=== PATIENT | female | born 1995 | race Caucasian/White ===

== ENCOUNTER 2017-05-17 15:38 | Inpatient (IN) | payer OTHER ==
[2017-05-17] VITALS (7 sets, daily range): BP systolic 102–126; BP diastolic 57–80; PULSE 79–100; RESP 12–23; TEMP 97.8–98.4; O2SAT 97–99
[~2017-05-17] VITALS: Ht 160 cm; Wt 61.0 kg
[2017-05-17] MEDS ORDERED: LACTATED RINGER'S 1000 ML INJ 1,000 ML IV SCH (15:57)
[2017-05-17] MEDS ORDERED: ONDANSETRON HCL 4 MG/2 ML VIAL IV PUSH ONE (16:00)
[2017-05-17] MEDS ORDERED: MORPHINE SULFATE 4 MG/ML INJ IV PUSH ONE (16:00)
[2017-05-17] MEDS: SODIUM CHLORIDE 0.9% FLUSH 10 ML FLUSH IVF PRN (16:06)
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
[2017-05-17 16:38] LABS: AUTOMATED NEUTROPHIL # 3.8 TH/MM3 (1.8-7.7); BASOPHIL % 0.5 % (0.0-2.0); EOSINOPHIL % 0.8 % (0.0-4.0); HEMATOCRIT 39.8 % (35.0-46.0); HEMOGLOBIN 13.7 GM/DL (11.6-15.3); LYMPHOCYTE # 1.8 TH/MM3 (1.0-4.8); MEAN CELL VOLUME 87.4 FL (80.0-100.0); MEAN CORPUSCULAR HEMOGLOBIN 30.2 PG (27.0-34.0); MEAN CORPUSCULAR HGB CONC 34.5 % (32.0-36.0); MEAN PLATELET VOLUME 7.9 FL (7.0-11.0); MONO % 7.3 % (0.0-8.0); MONOCYTE # 0.4 TH/MM3 (0-0.9); NEUT % 61.4 % (16.0-70.0); PLATELET COUNT 347 TH/MM3 (150-450); RED BLOOD COUNT 4.56 MIL/MM3 (4.00-5.30); RED CELL DISTRIBUTION WIDTH 12.1 % (11.6-17.2); WHITE BLOOD COUNT 6.1 TH/MM3 (4.0-11.0)
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
[2017-05-17 16:51] LABS: BICARBONATE 26.3 MEQ/L (21.0-32.0); CALCIUM 8.9 MG/DL (8.5-10.1); CREATININE 0.76 MG/DL (0.50-1.00); PROTHROMBIN TIME - PATIENT 10.1 SEC (9.8-11.6)
[2017-05-17] MEDS ORDERED: IOHEXOL 350 MG/ML 10 ML VIAL (for RAD DIAG) IVCONTRAST ONE (16:51)
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
[2017-05-17] MEDS ORDERED: NALOXONE HCL 0.4 MG/ML AMP IV PUSH PRN (18:00)
[2017-05-17] MEDS ORDERED: ACETAMINOPHEN/HYDROcodone 325 MG/5 MG TAB PO PRN (18:00)
[2017-05-17] MEDS ORDERED: ACETAMINOPHEN/HYDROcodone 325 MG/10 MG TAB PO PRN (18:00)
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
[2017-05-17] MEDS ORDERED: HYDROmorphone HCL PF 2 MG/ML VIAL IV PUSH PRN (18:15)
[2017-05-17] MEDS ORDERED: MORPHINE SULFATE 4 MG/ML INJ IV PUSH PRN (18:15)
[2017-05-17] MEDS: D5-NS + KCL 20 MEQ INJ 1,000 ML IV SCH (18:30)
[2017-05-17] MEDS: HYDROmorphone HCL PF 2 MG/ML VIAL IV PUSH PRN ×3 (18:31→23:20)
[2017-05-17] MEDS: ONDANSETRON HCL 4 MG/2 ML VIAL IV PUSH PRN (20:35)
[2017-05-17] MEDS: DOCUSATE SODIUM 100 MG CAP PO SCH (21:00)
[2017-05-18] VITALS (9 sets, daily range): BP systolic 102–109; BP diastolic 59–62; PULSE 67–98; RESP 17–28; TEMP 98.3–98.6; O2SAT 100
[2017-05-18] MEDS: ONDANSETRON HCL 4 MG/2 ML VIAL IV PUSH PRN ×2 (01:55→08:28)
[2017-05-18] MEDS: HYDROmorphone HCL PF 2 MG/ML VIAL IV PUSH PRN ×5 (02:32→22:43)
[2017-05-18] MEDS: D5-NS + KCL 20 MEQ INJ 1,000 ML IV SCH ×2 (04:00→14:47)
[2017-05-18 05:39] LABS: AUTOMATED NEUTROPHIL # 8.2 TH/MM3 (1.8-7.7); BASOPHIL % 0.1 % (0.0-2.0); HEMATOCRIT 35.8 % (35.0-46.0); HEMOGLOBIN 12.3 GM/DL (11.6-15.3); LYMPH % 15.3 % (9.0-44.0); LYMPHOCYTE # 1.6 TH/MM3 (1.0-4.8); MEAN CELL VOLUME 87.6 FL (80.0-100.0); MEAN CORPUSCULAR HEMOGLOBIN 30.1 PG (27.0-34.0); MEAN CORPUSCULAR HGB CONC 34.3 % (32.0-36.0); MEAN PLATELET VOLUME 8.1 FL (7.0-11.0); MONO % 6.7 % (0.0-8.0); MONOCYTE # 0.7 TH/MM3 (0-0.9); NEUT % 77.9 % (16.0-70.0); PLATELET COUNT 300 TH/MM3 (150-450); RED BLOOD COUNT 4.09 MIL/MM3 (4.00-5.30); RED CELL DISTRIBUTION WIDTH 12.2 % (11.6-17.2); WHITE BLOOD COUNT 10.5 TH/MM3 (4.0-11.0)
[2017-05-18 05:45] LABS: INTERNATIONAL NORMALIZED RATIO 1.1 RATIO
[2017-05-18 05:56] LABS: BICARBONATE 25.1 MEQ/L (21.0-32.0); CALCIUM 8.2 MG/DL (8.5-10.1); CREATININE 0.74 MG/DL (0.50-1.00)
--- NOTE | 2017-05-18 08:28 | ECHRPT ---
Indication: EF assessment of CHF CONCLUSIONS Normal left ventricular size. Wall thickness is normal. The left ventricular systolic function is hyperdynamic with an estimated ejection fraction in the ra nge of 65- 70%. No atrial level shunt is demonstrated by color flow Doppler interrogation. There is trace tricuspid valve regurgitation. The estimated pulmonary arterial pressure is 30.1 mmHg. BP: 102 / 59 HR: 72 Rhythm: Sinus MEASUREMENTS (Male / Female) Normal Values Technical Quality:Fair 2D ECHO LV Diastolic Diameter PLAX 4.6 cm 4.2 - 5.9 / 3.9 - 5.3 cm LV Systolic Diameter PLAX 2.9 cm IVS Diastolic Thickness 0.6 cm 0.6 - 1.0 / 0.6 - 0.9 cm LVPW Diastolic Thickness 0.6 cm 0.6 - 1.0 / 0.6 - 0.9 cm LV Relative Wall Thickness 0.3 RV Internal Dim ED PLAX 2.1 cm LVOT Diameter 1.8 cm Aortic Root Diameter 2.5 cm LA Systolic Diameter LX 2.8 cm 3.0 - 4.0 / 2.7 - 3.8 cm M-MODE AV Cusp Separation MM 1.9 cm DOPPLER Mitral E Point Velocity 80.0 cm/s Mitral A Point Velocity 40.0 cm/s Mitral E to A Ratio 2.0 LV E' Lateral Velocity 16.6 cm/s Mitral E to LV E' Lateral Ratio 4.8 LV E' Septal Velocity 12.4 cm/s Mitral E to LV E' Septal Ratio 6.5 TR Peak Velocity 224.0 cm/s TR Peak Gradient 20.1 mmHg Right Atrial Pressure 10.0 mmHg Pulmonary Artery Systolic Pressu 30.1 mmHg Right Ventricular Systolic Press 30.1 mmHg FINDINGS LEFT VENTRICLE Normal left ventricular size. Wall thickness is normal. The left ventricular systolic function is hyperdynamic with an estimated ejection fraction in the ra nge of 65- 70%. RIGHT VENTRICLE Normal right ventricular size and systolic function. LEFT ATRIUM The left atrial size is normal. RIGHT ATRIUM The right atrial size is normal. ATRIAL SEPTUM No atrial level shunt is demonstrated by color flow Doppler interrogation. AORTA The aortic root and proximal ascending aorta are normal in size on limited imaging. MITRAL VALVE Structurally normal mitral valve. No mitral valve stenosis or regurgitation. AORTIC VALVE Trileaflet aortic valve. No aortic valve stenosis or regurgitation. TRICUSPID VALVE There is trace tricuspid valve regurgitation. The estimated pulmonary arterial pressure is 30.1 mmHg. PULMONARY VALVE No pulmonary valve regurgitation or stenosis. VESSELS The inferior vena cava is normal in size. PERICARDIUM No pericardial effusion. Rodo Wray MD, FACC (Electronically Signed) Final Date:18 May 2017 08:27
[2017-05-18] MEDS: SODIUM CHLORIDE 0.9% FLUSH 10 ML FLUSH IVF PRN (08:29)
--- NOTE | 2017-05-18 08:44 | EKG ---
Date Performed: 05/18/2017 Time Performed: 05:35:26 PTAGE: 21 years EKG: Sinus rhythm . Inferior and anterolateral ST elevation, CONSIDER ACUTE INFARCT, PERICARDITIS, OR EARLY REPOLARIZAT ION ABNORMALITY Abnormal ECG NO PREVIOUS TRACING DOCTOR: Peter Nielson Interpretating Date/Time 05/18/2017 08:24:27
[2017-05-18] MEDS: DOCUSATE SODIUM 100 MG CAP PO SCH ×2 (09:00→21:00)
[2017-05-18] MEDS ORDERED: PANTOPRAZOLE SOD 40 MG DELAYED RELEASE TAB PO SCH (09:00)
[2017-05-18] MEDS ORDERED: HYDROmorphone HCL PCA 6 MG/30 ML IV SCH (09:15)
[2017-05-18] MEDS: PCA - TOTAL MG DILAUDID DELIVERED PER SHIFT SCH ×3 (09:15→22:00)
[2017-05-18] MEDS ORDERED: NALOXONE HCL 0.4 MG/ML AMP IV PUSH PRN ×2 (09:15→17:45)
[2017-05-18] MEDS ORDERED: methylPREDNISolone SOD SUCC 40 MG/1 ML VIAL IV PUSH ONE (09:30)
[2017-05-18] MEDS ORDERED: PANTOPRAZOLE SODIUM 40 MG VIAL IV PUSH SCH (10:00)
[2017-05-18] MEDS ORDERED: RESP: ALBUTEROL 2.5 MG/IPRATROPIUM 0.5 MG NEB (PRN) NEB (10:15)
[2017-05-18 10:20] LABS: TROPONIN I LESS THAN 0.02 NG/ML (0.02-0.05)
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
[2017-05-18] MEDS: ALPRAZolam 0.25 MG TAB PO PRN (10:52)
[2017-05-18] MEDS: CYCLOBENZAPRINE HCL 10 MG TAB PO PRN (10:52)
[2017-05-18] MEDS ORDERED: HYDROmorphone HCL PF 2 MG/ML VIAL IV ONE (11:17)
[2017-05-18] MEDS ORDERED: HYDROmorphone HCL PF 2 MG/ML VIAL IV PUSH PRN ×2 (12:00→17:45)
[2017-05-18] MEDS ORDERED: GLYCOPYRROLATE 1 MG/5 ML SYRINGE IV PUSH ONE (12:00)
[2017-05-18] MEDS ORDERED: ROCURONIUM INJ 50 MG/5 ML SYRINGE IV PUSH ONE (12:00)
[2017-05-18] MEDS ORDERED: LIDOCAINE HCL 1% PF 5 ML SYRINGE OTHER ONE (12:00)
[2017-05-18] MEDS ORDERED: SODIUM CHLORID 0.9% 500 ML INJ 500 ML IV ONE (12:00)
[2017-05-18] MEDS ORDERED: LACTATED RINGER'S 1000 ML INJ 2,000 ML IV ONE (12:00)
[2017-05-18] MEDS ORDERED: PHENYLEPH/NS 1000 MCG/10 ML SYR IV ONE (12:00)
[2017-05-18] MEDS ORDERED: ONDANSETRON HCL 4 MG/2 ML VIAL IV ONE (12:00)
[2017-05-18] MEDS ORDERED: DEXAMETHASONE SOD PHOS 4 MG/ML VIAL IV ONE (12:00)
--- NOTE | 2017-05-18 13:31 | RADRPT ---
EXAM DATE/TIME: 05/18/2017 12:48 [facility] COMPARISON: CT THORACIC SPINE W CONTRAST, May 17, 2017, 16:30. INDICATIONS : MCA. MEDICAL HISTORY : None. SURGICAL HISTORY : None. ENCOUNTER: Subsequent ACUITY: 2 day PAIN SCORE: 6/10 LOCATION: back TECHNIQUE: Multiplanar multisequence MRI of the thoracic spine was performed. FINDINGS: VERTEBRA: There is a moderate wedge compression fracture involving the superior plate of T11. There is abnormal bone marrow edema in the body of T11. The rest of the thoracic vertebral bodies are grossly intact. There is some kyphosis centered at T11. ALIGNMENT: Mild anterior subluxation of T10 over T11. CORD: Normal position and configuration. T1-T2: Normal. T2-T3: The thecal sac has a normal diameter. No evidence of disc bulge or protrusion. T3-T4: The thecal sac has a normal diameter. No evidence of disc bulge or protrusion. T4-T5: The thecal sac has a normal diameter. No evidence of disc bulge or protrusion. T5-T6: The thecal sac has a normal diameter. No evidence of disc bulge or protrusion. T6-T7: The thecal sac has a normal diameter. No evidence of disc bulge or protrusion. T7-T8: The thecal sac has a normal diameter. No evidence of disc bulge or protrusion. T8-T9: The thecal sac has a normal diameter. No evidence of disc bulge or protrusion. T9-T10: The thecal sac has a normal diameter. No evidence of disc bulge or protrusion. T10-T11: There is some retropulsion of the posterior body of T11 secondary to the compression fracture injury creating some mild to moderate spinal canal stenosis. No significant cord compression is demonstrated . T11-T12: Mild broad-based bulging. The neural foramina appear patent. T12-L1: The thecal sac has a normal diameter. No evidence of disc bulge or protrusion. CONCLUSION: 1. Moderate acute wedge compression fracture injury involving the superior endplate of T11 causing ky phosis of the thoracic spine centered at this level. 2. Mild retropulsion of bony material posteriorly at the top of T11 causing some mild to moderate spi nal canal stenosis without significant cord compression. Geo Lin MD on May 18, 2017 at 13:20 Board Certified Radiologist. This report was verified electronically.
[2017-05-18] MEDS: RESP: ALBUTEROL 2.5 MG/IPRATROPIUM 0.5 MG NEB (SCH) NEB ×2 (14:20→20:00)
--- NOTE | 2017-05-18 14:41 | EKG ---
Date Performed: 05/18/2017 Time Performed: 11:22:18 PTAGE: 21 years EKG: Sinus rhythm . Normal ECG NO PREVIOUS TRACING DOCTOR: Peter Nielson Interpretating Date/Time 05/18/2017 14:38:52
[2017-05-18] MEDS ORDERED: VANCOMYCIN HCL 1000 MG VIAL ONE ×2 (15:04→17:36)
[2017-05-18] MEDS ORDERED: HEPARIN SODIUM - SQ 10,000 UNITS/ML VIAL ONE (15:04)
[2017-05-18] MEDS ORDERED: THROMBIN (TOPICAL) 5,000 UNIT VIAL ONE (15:04)
[2017-05-18] MEDS ORDERED: GELFOAM SIZE 100 ONE (15:05)
[2017-05-18] MEDS ORDERED: GELATIN POWDER 1 GM PACKET ONE (15:05)
[2017-05-18] MEDS ORDERED: BUPIVACAINE/EPINEPHRINE 0.5% PF 30 ML VIAL ONE (15:05)
[2017-05-18] MEDS ORDERED: GENTAMICIN SULFATE 80 MG/2 ML VIAL ONE (15:05)
--- NOTE | 2017-05-18 16:36 | HHI.NSPN ---
Note Status Status: Progress Note Interval History Interval History MRI Thoracic spine was done. Unstable fracture at T10-T11. Labs, Micro, & Vital Signs Results Date Time Temp Pulse Resp B/P (MAP) Pulse Ox O2 Delivery O2 Flow Rate FiO2 05/18/17 10:53 30 05/18/17 10:50 30 05/18/17 08:40 100 Nasal Cannula 2.00 05/18/17 06:00 74 05/18/17 04:00 72 05/18/17 04:00 98.3 72 17 102/59 (73) 100 05/18/17 02:00 72 05/18/17 00:00 98.6 67 18 103/61 (75) 100 05/18/17 00:00 70 05/17/17 22:00 85 05/17/17 20:00 98 05/17/17 20:00 98.4 98 23 108/57 (74) 99 05/17/17 19:05 98.4 100 12 108/63 (78) 99 05/17/17 18:35 97.8 81 16 102/67 (79) 99 05/17/17 17:47 97.8 89 16 126/80 (95) 99 Room Air Constitutional Vital Signs Date Time Temp Pulse Resp B/P (MAP) Pulse Ox O2 Delivery O2 Flow Rate FiO2 05/18/17 10:53 30 05/18/17 10:50 30 05/18/17 08:40 100 Nasal Cannula 2.00 05/18/17 06:00 74 05/18/17 04:00 72 05/18/17 04:00 98.3 72 17 102/59 (73) 100 05/18/17 02:00 72 05/18/17 00:00 98.6 67 18 103/61 (75) 100 05/18/17 00:00 70 05/17/17 22:00 85 05/17/17 20:00 98 05/17/17 20:00 98.4 98 23 108/57 (74) 99 05/17/17 19:05 98.4 100 12 108/63 (78) 99 05/17/17 18:35 97.8 81 16 102/67 (79) 99 05/17/17 17:47 97.8 89 16 126/80 (95) 99 Room Air Attending Statement I agree with Dr Pineda in the need for a surgical decompression and arthrodhesis with open reduction and internal fixation. I reviewed with her and discussed the details including the [id number] details of the surgical procedure, its indications, alternatives, risks, and potential complications. Risks and potential complications include, but are not limited to, infection, blood loss, CSF leak, partial or complete loss of sight in one or both eyes, paresis, paralysis, permanent pain or difficulty swallowing, loss of bowel or bladder function, complications from anesthesia, blood clot, stroke, myocardial infarction, or even . Geo Cunha MD May 18, 2017 16:36
[2017-05-18] MEDS ORDERED: ARTIFICIAL TEARS OPTH OINT 3.5 APPLIC/3.5 GM TUBO ONE (16:58)
[2017-05-18] MEDS ORDERED: PROPOFOL 500 MG/50 ML INJ 150 ML ONE (16:58)
[2017-05-18] MEDS ORDERED: SUFentanil INJ 250 MCG/5 ML AMP ONE (16:59)
[2017-05-18] MEDS ORDERED: SODIUM CHLOR 0.9% 250 ML INJ 250 ML ONE (17:37)
[2017-05-18] MEDS ORDERED: diphenhydrAMINE HCL 50 MG/ML VIAL IV PUSH PRN (17:45)
[2017-05-18] MEDS ORDERED: ACETAMINOPHEN 325 MG TAB PO PRN (17:45)
[2017-05-18] MEDS ORDERED: HYDROmorphone HCL PF 1 MG/ML VIAL IV PUSH PRN (17:45)
[2017-05-18] MEDS ORDERED: ceFAZolin INJ 1,000 MG VIAL IV ONE (18:05)
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
[2017-05-18] MEDS ORDERED: DO NOT ADM ANY ANTICOAGULANT DRUGS PRN (21:00)
[2017-05-18] MEDS ORDERED: *MEPERIDINE 25 MG INJ VIAL PERIprocedural Use ONLY ONE (21:24)
[2017-05-18] MEDS ORDERED: *morphine SULFATE 4 MG/ML PERIprocedure ONLY ONE (21:53)
[2017-05-18] MEDS: NS + KCL 20 MEQ INJ 1,000 ML IV SCH (22:10)
[2017-05-18] MEDS: HYDROmorphone HCL PCA 6 MG/30 ML IV SCH (22:15)
--- NOTE | 2017-05-18 22:48 | RADRPT ---
EXAM DATE/TIME: 05/18/2017 18:11 [facility] COMPARISON: No previous studies available for comparison. INDICATIONS : Thoracic fusion, T9-12. MEDICAL HISTORY : None. SURGICAL HISTORY : None. ENCOUNTER: Subsequent ACUITY: 1 day PAIN SCORE: Non-responsive. LOCATION: Thoracic. FINDINGS: There is transpedicular screw héctor fixation across a [id number] compression fracture. Drain pres ent. No complications identified. CONCLUSION: 1. Spine fixation, reportedly at T9-T12. Pro Brown MD on May 18, 2017 at 22:44 Board Certified Radiologist. This report was verified electronically.
[2017-05-19] VITALS (10 sets, daily range): BP systolic 105–128; BP diastolic 58–69; PULSE 72–115; RESP 10–24; TEMP 96.5–98.5; O2SAT 96–100
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
[2017-05-19] MEDS: HYDROmorphone HCL PF 2 MG/ML VIAL IV PUSH PRN (00:32)
[2017-05-19] MEDS: ALPRAZolam 0.25 MG TAB PO PRN ×2 (01:51→20:58)
[2017-05-19] MEDS: CYCLOBENZAPRINE HCL 10 MG TAB PO PRN ×3 (01:51→19:53)
[2017-05-19] MEDS: CEFAZOLIN INJ 2,000 MG in SODIUM CHLORIDE 0.9% INJ 80 ML IV SCH ×3 (01:51→18:46)
[2017-05-19] MEDS: ONDANSETRON HCL 4 MG/2 ML VIAL IV PUSH PRN (02:04)
[2017-05-19 03:20] LABS: AUTOMATED NEUTROPHIL # 12.1 TH/MM3 (1.8-7.7); BASOPHIL % 0.1 % (0.0-2.0); HEMOGLOBIN 11.5 GM/DL (11.6-15.3); LYMPH % 4.5 % (9.0-44.0); LYMPHOCYTE # 0.6 TH/MM3 (1.0-4.8); MEAN CELL VOLUME 88.7 FL (80.0-100.0); MEAN CORPUSCULAR HGB CONC 33.9 % (32.0-36.0); MONO % 5.6 % (0.0-8.0); MONOCYTE # 0.7 TH/MM3 (0-0.9); NEUT % 89.8 % (16.0-70.0); PLATELET COUNT 256 TH/MM3 (150-450); RED BLOOD COUNT 3.84 MIL/MM3 (4.00-5.30); WHITE BLOOD COUNT 13.5 TH/MM3 (4.0-11.0)
[2017-05-19 03:36] LABS: CALCIUM 7.8 MG/DL (8.5-10.1); CREATININE 0.84 MG/DL (0.50-1.00)
[2017-05-19] MEDS: HYDROmorphone HCL PCA 6 MG/30 ML IV SCH ×2 (03:39→23:12)
[2017-05-19] MEDS: PCA - TOTAL MG DILAUDID DELIVERED PER SHIFT SCH ×2 (06:00→22:00)
[2017-05-19] MEDS: NS + KCL 20 MEQ INJ 1,000 ML IV SCH (06:49)
[2017-05-19] MEDS: RESP: ALBUTEROL 2.5 MG/IPRATROPIUM 0.5 MG NEB (SCH) NEB ×3 (08:25→21:01)
[2017-05-19] MEDS: MAGNESIUM HYDROXIDE SUSP 30 ML CUP PO SCH ×2 (08:37→19:53)
[2017-05-19] MEDS: DOCUSATE SODIUM 100 MG CAP PO SCH (08:37)
[2017-05-19] MEDS: DOCUSATE SODIUM 50 MG/SENNA 8.6 MG TAB PO SCH ×2 (08:37→19:53)
[2017-05-19] MEDS: PANTOPRAZOLE SODIUM 40 MG VIAL IVP SCH (08:37)
[2017-05-19] MEDS ORDERED: ACETAMINOPHEN/HYDROcodone 325 MG/10 MG TAB PO PRN (09:30)
[2017-05-19] MEDS ORDERED: MORPHINE SULFATE 2 MG/ML INJ IV PUSH PRN (10:00)
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
[2017-05-19] MEDS: ACETAMINOPHEN/HYDROcodone 325 MG/10 MG TAB PO PRN ×3 (11:27→19:53)
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
[2017-05-19] MEDS ORDERED: diphenhydrAMINE HCL 50 MG/ML VIAL IV PUSH PRN (21:45)
[2017-05-19] MEDS ORDERED: NALOXONE HCL 0.4 MG/ML AMP IV PUSH PRN (21:45)
[2017-05-19] MEDS ORDERED: diphenhydrAMINE HCL 25 MG CAP PO PRN (21:45)
[2017-05-19] MEDS: SODIUM CHLORIDE 0.9% FLUSH 10 ML FLUSH IVF PRN (23:04)
[2017-05-20] VITALS (9 sets, daily range): BP systolic 98–117; BP diastolic 51–71; PULSE 102–119; RESP 15–22; TEMP 97.3–101.5; O2SAT 91–100
[2017-05-20 04:32] LABS: AUTOMATED NEUTROPHIL # 6.4 TH/MM3 (1.8-7.7); BASOPHIL % 0.3 % (0.0-2.0); EOSINOPHIL % 0.1 % (0.0-4.0); HEMATOCRIT 35.8 % (35.0-46.0); HEMOGLOBIN 12.3 GM/DL (11.6-15.3); LYMPHOCYTE # 1.7 TH/MM3 (1.0-4.8); MEAN CELL VOLUME 89.2 FL (80.0-100.0); MEAN CORPUSCULAR HEMOGLOBIN 30.6 PG (27.0-34.0); MEAN CORPUSCULAR HGB CONC 34.3 % (32.0-36.0); MEAN PLATELET VOLUME 7.9 FL (7.0-11.0); MONO % 9.9 % (0.0-8.0); MONOCYTE # 0.9 TH/MM3 (0-0.9); NEUT % 70.7 % (16.0-70.0); PLATELET COUNT 252 TH/MM3 (150-450); RED BLOOD COUNT 4.01 MIL/MM3 (4.00-5.30); RED CELL DISTRIBUTION WIDTH 12.3 % (11.6-17.2)
[2017-05-20 04:50] LABS: LACTIC ACID SEPSIS PROTOCOL 2.4 mmol/L (0.4-2.0)
[2017-05-20 05:00] LABS: ALBUMIN 3.2 GM/DL (3.4-5.0); ALKALINE PHOSPHATASE 47 U/L (45-117); ALT (GPT) 47 U/L (10-53); AST (GOT) 120 U/L (15-37); BICARBONATE 30.5 MEQ/L (21.0-32.0); BLOOD UREA NITROGEN 4 MG/DL (7-18); CALCIUM 8.2 MG/DL (8.5-10.1); CHLORIDE 100 MEQ/L (98-107); CREATININE 0.67 MG/DL (0.50-1.00); GLOMERULAR FILTRATION RATE 110 ML/MIN (>89); GLUCOSE,RANDOM 93 MG/DL (74-106); SODIUM (NA) 138 MEQ/L (136-145); TOTAL BILIRUBIN ADULT 0.5 MG/DL (0.2-1.0); TOTAL PROTEIN 6.9 GM/DL (6.4-8.2)
[2017-05-20] MEDS: PCA - TOTAL MG DILAUDID DELIVERED PER SHIFT SCH ×3 (06:00→21:23)
[2017-05-20] MEDS: HYDROmorphone HCL PCA 6 MG/30 ML IV SCH (06:26)
[2017-05-20] MEDS: ONDANSETRON HCL 4 MG/2 ML VIAL IV PUSH PRN (06:34)
[2017-05-20] MEDS ORDERED: POTASSIUM CHLORIDE 20 MEQ CONTROLLED RELEASE TAB PO ONE (08:00)
[2017-05-20] MEDS: RESP: ALBUTEROL 2.5 MG/IPRATROPIUM 0.5 MG NEB (SCH) NEB ×3 (08:18→19:22)
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
[2017-05-20] MEDS: PANTOPRAZOLE SODIUM 40 MG VIAL IVP SCH (08:57)
[2017-05-20] MEDS: MAGNESIUM HYDROXIDE SUSP 30 ML CUP PO SCH ×2 (08:57→21:17)
[2017-05-20] MEDS: DOCUSATE SODIUM 50 MG/SENNA 8.6 MG TAB PO SCH ×2 (08:57→21:17)
[2017-05-20] MEDS: ALPRAZolam 0.25 MG TAB PO PRN ×2 (09:02→18:08)
[2017-05-20] MEDS: CYCLOBENZAPRINE HCL 10 MG TAB PO PRN ×2 (09:03→18:08)
[2017-05-20] MEDS ORDERED: HYDROmorphone HCL PCA 6 MG/30 ML IV SCH (14:45)
[2017-05-20] MEDS: METOCLOPRAMIDE HCL 10 MG/2 ML VIAL IV PUSH SCH ×2 (15:29→21:22)
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
[2017-05-20] MEDS: ACETAMINOPHEN/HYDROcodone 325 MG/10 MG TAB PO PRN ×2 (17:24→21:18)
[2017-05-20] MEDS: ENOXAPARIN SODIUM 30 MG/0.3 ML SYRINGE SQ SCH (17:26)
[2017-05-21] VITALS (7 sets, daily range): BP systolic 98–113; BP diastolic 57–70; PULSE 100–107; RESP 14–20; TEMP 95–99.6; O2SAT 91–98
[2017-05-21] MEDS: ACETAMINOPHEN/HYDROcodone 325 MG/10 MG TAB PO PRN ×4 (05:39→20:01)
[2017-05-21] MEDS: PCA - TOTAL MG DILAUDID DELIVERED PER SHIFT SCH (05:45)
[2017-05-21] MEDS: METOCLOPRAMIDE HCL 10 MG/2 ML VIAL IV PUSH SCH ×3 (06:00→20:17)
[2017-05-21] MEDS: RESP: ALBUTEROL 2.5 MG/IPRATROPIUM 0.5 MG NEB (SCH) NEB ×3 (09:14→19:54)
[2017-05-21] MEDS: LACTULOSE SYRUP 20 GM/30 ML CUP PO SCH (09:18)
[2017-05-21] MEDS: DOCUSATE SODIUM 50 MG/SENNA 8.6 MG TAB PO SCH ×2 (09:18→20:01)
[2017-05-21] MEDS: ENOXAPARIN SODIUM 30 MG/0.3 ML SYRINGE SQ SCH ×2 (09:19→20:03)
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
[2017-05-21] MEDS: ALPRAZolam 0.25 MG TAB PO PRN ×2 (11:34→20:01)
[2017-05-21] MEDS: CYCLOBENZAPRINE HCL 10 MG TAB PO PRN ×2 (11:35→20:01)
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
--- NOTE | 2017-05-21 19:14 | HHI.NSPN ---
History Interval History Patient reports she is doing well. She reports her pain is well controlled. She is able to move her extremities well. She is beginning to ambulate with minimal assistance. She reports her brace is too big Exam Results Vital Signs Date Time Temp Pulse Resp B/P (MAP) Pulse Ox O2 Delivery O2 Flow Rate FiO2 05/21/17 16:00 97.6 105 14 113/65 (81) 95 05/21/17 09:14 21 05/19/17 08:25 Nasal Cannula 2.00 Intake and Output 05/21/17 05/21/17 05/22/17 08:00 16:00 00:00 Intake Total 220 ml 2200 ml Output Total 320 ml 800 ml Balance -100 ml 1400 ml Physical Examination Patient is alert and awake. Follows commands well. Moves lower extremities well. Sensation is intact Medical Decision Making Impression and Plan Overall doing well Plan is to increase mobilization. Request has also been placed to modify her brace Eric Rios MD May 21, 2017 19:14
[2017-05-21] MEDS ORDERED: HYDROmorphone HCL PF 2 MG/ML VIAL IV PUSH ONE (22:45)
[2017-05-22] VITALS: BP 116/58; PULSE 113; RESP 16; TEMP 98; O2SAT 92
[2017-05-22] MEDS: ACETAMINOPHEN/HYDROcodone 325 MG/10 MG TAB PO PRN ×4 (00:16→14:09)
[2017-05-22] MEDS: CYCLOBENZAPRINE HCL 10 MG TAB PO PRN ×2 (04:06→12:29)
[2017-05-22] MEDS: ALPRAZolam 0.25 MG TAB PO PRN ×2 (04:06→12:29)
[2017-05-22] MEDS: METOCLOPRAMIDE HCL 10 MG/2 ML VIAL IV PUSH SCH ×2 (04:10→12:29)
[2017-05-22 08:00] VITALS: BP 88/50; PULSE 97; RESP 18; TEMP 97.2; O2SAT 94
[2017-05-22] MEDS: RESP: ALBUTEROL 2.5 MG/IPRATROPIUM 0.5 MG NEB (SCH) NEB (08:17)
[2017-05-22] MEDS ORDERED: SODIUM CHLORID 0.9% 500 ML INJ 500 ML IV ONE (08:30)
[2017-05-22] MEDS: ENOXAPARIN SODIUM 30 MG/0.3 ML SYRINGE SQ SCH (08:45)
[2017-05-22] MEDS: DOCUSATE SODIUM 50 MG/SENNA 8.6 MG TAB PO SCH (08:45)
[2017-05-22] MEDS: LACTULOSE SYRUP 20 GM/30 ML CUP PO SCH (08:45)
[2017-05-22 10:00] VITALS: BP 104/64
[2017-05-22] MEDS ORDERED: PERI PO (11:40)
[2017-05-22] MEDS ORDERED: HYDR-3583 PO (11:40)
[2017-05-22 12:00] VITALS: BP 118/68; PULSE 106; RESP 16; TEMP 97.7; O2SAT 98
[2017-05-22] MEDS ORDERED: MELA5 PO (12:49)
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
== END 2017-05-22 14:36 | disposition home or self-care (01) | DRG 460 ==
LOC: NEPE 15:38 → NEDA 17:44 → N03B 18:48 → N07B 05-19 13:22
PROVIDERS: ADMIT Surgery; ATTEND Surgery
PROC: 0RG707J Fusion of 2 to 7 Thoracic Vertebral Joints with Autologous Tissue Substitute, Posterior Approach, Anterior Column, Open Approach (ICD-10-PCS; 2017-05-18)
PROC: 0QB30ZZ Excision of Left Pelvic Bone, Open Approach (ICD-10-PCS; 2017-05-18)
PROC: 0PS404Z Reposition Thoracic Vertebra with Internal Fixation Device, Open Approach (ICD-10-PCS; 2017-05-18)
PROC: 4A11X4G Monitoring of Peripheral Nervous Electrical Activity, Intraoperative, External Approach (ICD-10-PCS; 2017-05-18)
PROC: 0RG70AJ Fusion of 2 to 7 Thoracic Vertebral Joints with Interbody Fusion Device, Posterior Approach, Anterior Column, Open Approach (ICD-10-PCS; principal; 2017-05-18 17:18)
DX: S22.080A Wedge compression fracture of T11-T12 vertebra, initial encounter for closed fracture (principal); M51.24 Other intervertebral disc displacement, thoracic region; F41.9 Anxiety disorder, unspecified; J45.909 Unspecified asthma, uncomplicated; V23.4XXA Motorcycle driver injured in collision with car, pick-up truck or van in traffic accident, initial encounter; Y93.89 Activity, other specified; R94.31 Abnormal electrocardiogram [ECG] [EKG]; Y92.410 Unspecified street and highway as the place of occurrence of the external cause; R50.82 Postprocedural fever
CPT/HCPCS: 70450; 71045; 71260; 72070; 72125; 72129; 72132; 72146; 72170; 74177; 76000; 80048; 80053; 82550; 82552; 82805; 83605; 84484; 84703; 85025; 85610; 85730; 86850; 86900; 86901; 86920; 87641; 93005; 93308; 94150; 94640; 94664; 94667; 94668; 96361; 96374; 96375; C1713; C9113; J0690; J1100; J1170; J1580; J1644; J1650; J2175; J2270; J2370; J2405; J2765; J2920; J3010; J3370; J3480; J7040; J7050; J7120; L0200; L0484; Q9967